=== PATIENT | female | born 1935 | race Two or more races ===

== ENCOUNTER 2023-06-27 13:53 | Emergency (ER) | payer OTHER ==
[~2023-06-27] VITALS: Ht 157.5 cm; Wt 40.8 kg
[~2023-06-27 13:53] MED LIST: SYNTHROID100 MCG PO; VERAPAMIL HCL80 MG PO; VYTORIN 10-20 M1 TAB PO
[2023-06-27] MEDS ORDERED: ARICEPT5 MG PO (14:07)
== END 2023-06-27 15:49 | disposition home or self-care (01) ==
LOC: ER 13:54
DX: S59.802A Other specified injuries of left elbow, initial encounter (principal); W06.XXXA Fall from bed, initial encounter; Y93.89 Activity, other specified; Y92.013 Bedroom of single-family (private) house as the place of occurrence of the external cause; S49.82XA Other specified injuries of left shoulder and upper arm, initial encounter; I10 Essential (primary) hypertension
CPT/HCPCS: 73030; 73070; 96365; 99284; J1885

== ENCOUNTER 2024-03-14 21:05 | Emergency (ER) | payer OTHER ==
[~2024-03-14] VITALS: Ht 157.5 cm; Wt 41.7 kg
[~2024-03-14 21:05] MED LIST changes: +ARICEPT5 MG PO
[2024-03-14] MEDS ORDERED: KETOROLAC TROMETHAMINE 15 MG VIAL IM STA (22:31)
[2024-03-14] MEDS ORDERED: KETOROLAC TROMETHAMINE 30 MG VIAL ONE (22:58)
[2024-03-14] MEDS ORDERED: PROPOFOL 10,000 MCG/ML VIAL IV PUSH STA (23:02)
[2024-03-14] MEDS ORDERED: FLUMAZENIL 0.5 MG/5 ML ML IV ONE (23:22)
[2024-03-15] MEDS ORDERED: MIDAZOLAM HCL 2 MG/2 ML VIAL IV PUSH ONE (00:45)
[2024-03-15] MEDS ORDERED: FLUMAZENIL 0.5 MG/5 ML ML IV ONE (00:45)
== END 2024-03-15 00:50 | disposition home or self-care (01) ==
LOC: ER 21:06
DX: M25.511 Pain in right shoulder (principal); S42.291A Other displaced fracture of upper end of right humerus, initial encounter for closed fracture; W18.39XA Other fall on same level, initial encounter; Y93.89 Activity, other specified; Y92.018 Other place in single-family (private) house as the place of occurrence of the external cause
CPT/HCPCS: 24505; 73030; 96365; 96372; 99283; J1885; J3490